=== PATIENT | male | born 2000 | race Caucasian/White ===

== ENCOUNTER 2024-03-06 13:17 | Inpatient (IN) | payer OTHER, SELFPAY ==
[2024-03-04 21:21] VITALS: BP 106/76
[2024-03-04 21:34] VITALS: BP 112/68
[2024-03-04 22:00] VITALS: BP 117/73
--- NOTE | 2024-03-04 22:10 | ED.GENMED ---
History of Present Illness
General
Chief Complaint: Fever
Source: patient
Exam Limitations: none
Time Seen by Provider: 03/04/24 21:32
History of Present Illness
History of Present Illness:
This is a 24 year old male that comes in with c/o fever. States that he has been fighting this all day. States that he had a fever of 104.4 to a low of 101.2. States that he also started with vomiting and has vomited 4 times. Once was self induced.
States that he feels like his vision is swaying. Patient also took Melatonin about 1.5 hours before arriving. States that he has had diarrhea the past couple of days. States that he has a cough. Patient last Chemo which was his first one was on Feb
and it was 'R-CHOP'. Unable to say if he feels SOB. Denies any chills, chest pain, diarrhea, dizziness, urinary burning.
Past History
Past History
ED Past Medical History: Cancer (Lymphoma); Negative Asthma, HTN, Hypercholesterolemia or NIDDM
ED Past Surgical History: Other (Right port)
Social History
Tobacco: Non-smoker
Alcohol: Occasional
Drug: Marijuana
Personal: Single
Living: with family
Review of Systems
Review of Systems
All Other Systems: ROS reviewed and negative except as documented in HPI and ROS
Constitutional: Reports fever; Denies chills
EENT: Reports other (Feels like his vision is swaying)
Respiratory: Reports cough
Cardiac: Denies chest pain
ABD/GI: Reports nausea and vomiting; Denies abdominal pain or diarrhea
: Reports no symptoms; Denies dysuria, frequency or urgency
Musculoskeletal: Reports no symptoms
Skin: Reports no symptoms
Neurological: Reports headache; Denies dizzy
Psychiatric: Reports no symptoms
Phy Exam
General Physical Exam
General Presentation: no apparent distress
General age: appears stated age
General Skin: warm and dry
General Habitus: normal
General Mental: alert
General Hydration: appears well hydrated
ENT Exam
ENT Exam: TM's normal, pharynx normal and neck supple
Eye Exam
Eye Exam: EOMI
Cardiovascular Exam
Cardiovascular Exam: no edema, no murmur, normal peripheral pulses and tachycardia
Pulmonary Exam
Pulmonary Exam: lungs clear, no respiratory distress, no rales, chest non tender, no crackles, no rhonchi, no wheezing and no cough
Gastrointestinal Exam
Gastrointestinal Exam: normal bowel sounds, non tender, soft, no organomegaly, no pulsatile mass and non distended
Musculoskeletal Exam
Musculoskeletal Exam: full ROM and no edema
Skin Exam
Skin Exam: normal color, warm/dry, no rash, no petechia and other (Small open area noted on the medial aspect of his incision line of his port. )
Psychiatric Exam
Psychiatric Exam: normal mood/affect
Course
Orders/Labs/Results
Orders:
Orders
03/04/24 21:45
Acetaminophen 1000MG/100Ml [Ofirmev] 1,000 mg in 100 ml .ROUTE .STK-MED
Ondansetron Injectable [Zofran] 4 mg .ROUTE .STK-MED ONE
03/04/24 21:59
0.9% Sodium Chloride 1000 ml [Nss] 1,000 ml IV BOLUS
CR Chest - 2 Views Urgent
Comment:
Reason For Exam: fever
03/04/24 22:07
CBC/With Diff [Complete Blood Count/With Diff] Urgent
CMP [Comprehensive Metabolic Panel] Urgent
Lactic Acid Urgent
03/04/24 22:12
Acetaminophen 1000MG/100Ml [Ofirmev] 1,000 mg in 100 ml IV ONCE
Acetaminophen IV Indication:: ED Narcotic Naive Pt-ONCE
Ondansetron Injectable [Zofran] 4 mg IV NOW STA
03/04/24 22:27
COVID-19 Antigen Urgent
Source: Nasal Swab
Blood Culture Urgent
MARIPOSA Source: Blood/Venous
Specimen Description:
Influenza A+B Rapid Molecular Urgent
MARIPOSA Source: Nasal Swab
Specimen Description:
03/04/24 23:05
Urinalysis Reflex To Culture Urgent
Date Specimen was Collected: 03/04/24
Time Specimen was Collected: 23:04
Urine Microscopic Reflex Cult Urgent
03/04/24 23:41
Piperacillin/Tazo 3.375 Gram [Zosyn] 3.375 gram in 50 ml IV NOW
Vancomycin 1 Gram/200 ml [Vancocin] 1 gram in 200 ml IV NOW
Abnormal Lab Results
03/04/24 03/04/24
22:07 23:05
WBC 16.8 H 10^3/uL
(4.8-10.8)
MCV 75.8 L fL
(80.0-94.0)
Abs Immat Gran (auto) 0.1 H 10^3/uL
(0-0.05)
Absolute Neuts (auto) 14.8 H 10^3/uL
(1.4-6.5)
Absolute Lymphs (auto) 0.6 L 10^3/uL
(1.2-3.4)
Absolute Monos (auto) 1.3 H 10^3/uL
(0.1-0.6)
Neutrophils % 87.6 H %
(42.2-75.2)
Lymphocytes % 3.4 L %
(20.5-51.1)
Sodium 131 L mmol/L
(135-145)
Chloride 96 L mmol/L
(98-107)
Carbon Dioxide 21 L mmol/L
(22-30)
Glucose 126 H mg/dl
(70-99)
Lactic Acid 0.6 L mmol/L
(0.7-2.0)
ALT 60 H U/L
(0-50)
Total Protein 6.2 L g/dl
(6.3-8.2)
Urine Ketones 2+ A
(Negative)
Urine Bilirubin 1+ A
(Negative)
Urine Albumin (Reflex) 1+ A
(Neg - Trace)
03/04/24 22:07
03/04/24 22:07
Leukocytosis, Absolute neuts elevated. Sodium slightly low, Chloride slightly low, Hyperglycemia, ALT elevated. Total protein slightly low 6.2 Urine negative for infection. COVID negative, Influenza negative.
Vital Signs
Initial and Last Documented VS:
Initial Vital Signs
Temp Pulse Resp BP Pulse Ox
102.2 F H 144 28 106/76 94
03/04/24 21:21 03/04/24 21:21 03/04/24 21:21 03/04/24 21:21 03/04/24 21:21
Last Documented Vital Signs
Temp Pulse Resp BP Pulse Ox
99.9 F 109 16 106/69 95
03/04/24 23:10 03/04/24 23:08 03/04/24 23:08 03/04/24 23:08 03/04/24 23:15
MDM/Problems Addressed
Differential Diagnosis Includes:
Neutropenic fever, COVID, Influenza,
MDM/Problems Addressed:
This is a 24 year old male that comes in with c/o fever. States that this started today and he has been as high as 104.4 and low as 101.2.
Will get labs, chest , urine, Give IV fluid and medicate for nausea and fever.
back into see patient and family. Explained that his chest x-ray is normal. He is negative or COVID and influenza,. Urine is negative for infection. Will admit patient and start IV antibiotics. Blood culture are pending. Hospitalist notified.
Chronic conditions affecting care: Cancer
Acute Exacerbation and/or Progression of Chronic Illness: Cancer
*Pulse Oximetry
Patient hypoxic: no
*EKG
Interpreted by ED Provider?: NA
Rate: EKG- N/A
*Bailiff Interpretation
Rate: tachycardiac
Heart Rate: 120
Rhythm: sinus tachycardia
*Critical Care Note
Total Time (30-74mins, 75-104mins- exclusive of procedures): Not Applicable
ED Attending Note
-
Portions of this chart may have been created with voice recognition software.� Occasional wrong word or��sound alike� substitutions may have occurred due to the inherent limitations of voice recognition software.
Discharge Plan
Departure
Patient Disposition: Admit
Date of Disposition: 03/04/24
Time of Disposition: 23:54
Admit to: Med/Surg
Presentation/result/management discussed w/ accepting MD/DO: Hospitalist
Patient with high blood pressure during this ER visit?: No
Condition: Good
Covid-19: Negative COVID-19
Discharge Problem:
Fever
Referrals:
Justin Moon MD [Family Provider] -
Interventions
Interventions:
*Risk Screen - Suicide Last Done: 03/04/24 21:21
*General Assessment Last Done: 03/04/24 21:21
*Neglect/Abuse Screening Last Done: 03/04/24 21:21
ED- Fall Risk Assessment Last Done: 03/04/24 21:21
*ED COVID-19 Vaccine History Last Done: 03/04/24 21:21
Discharge Date and Time
Print Language: DANISH
[2024-03-04 22:16] LABS: % Basophils 0.6 % (0-2); % Immature Granulocytes 0.5 % (0-0.5); % Lymphocytes 3.4 % (20.5-51.1); % Monocytes 7.9 % (1.7-9.3); % Neutrophils 87.6 % (42.2-75.2); Absolute Basophils 0.1 10^3/uL (0-0.2); Absolute Immature Granulocytes 0.1 10^3/uL (0-0.05); Absolute Lymphocytes 0.6 10^3/uL (1.2-3.4); Absolute Monocytes 1.3 10^3/uL (0.1-0.6); Absolute Neutrophils 14.8 10^3/uL (1.4-6.5); Hemoglobin 14.9 g/dL (13.0-18.0); Mean Corp Hgb Conc. 36.3 g/dL (33.0-37.0); Mean Corpuscular Hgb 27.5 pg (27.0-31.0); Mean Corpuscular Volume 75.8 fL (80.0-94.0); Nucleated Red Blood Cells % 0 % (-); Platelet Count 146 10^3/uL (130-400); Red Blood Cell Count 5.41 10^6/uL (4.70-6.10); Red Cell Dist. Width 13.2 % (11.5-14.5); White Blood Cell Count 16.8 10^3/uL (4.8-10.8)
[2024-03-04] MEDS: NSS 1000 IV (22:17)
[2024-03-04] MEDS: ZOFRAN 4 MG IV (22:18)
[2024-03-04] MEDS: OFIRMEV 100 IV (22:18)
[2024-03-04 22:28] LABS: Lactic Acid 0.6 mmol/L (0.7-2.0)
[2024-03-04 22:30] VITALS: BP 121/66
[2024-03-04 22:35] LABS: ALT (SGPT) 60 U/L (0-50); AST (SGOT) 46 U/L (17-59); Albumin 3.9 g/dl (3.5-5.0); Alkaline Phosphatase 125 U/L (38-126); Blood Urea Nitrogen 15 mg/dl (9-20); Calcium 8.9 mg/dl (8.4-10.2); Carbon Dioxide 21 mmol/L (22-30); Chloride 96 mmol/L (98-107); Glucose 126 mg/dl (70-99); Potassium 3.9 mmol/L (3.5-5.1); Sodium 131 mmol/L (135-145); Total Bilirubin 1.2 mg/dl (0.2-1.3); Total Protein 6.2 g/dl (6.3-8.2); eGFR > 60.00
[2024-03-04 22:54] LABS: COVID-19 Antigen Negative (Negative)
[2024-03-04 23:08] VITALS: BP 106/69
[2024-03-04 23:16] LABS: Urine Albumin 1+ (Neg - Trace); Urine Bilirubin 1+ (Negative); Urine Character Clear (Clear); Urine Color Yellow; Urine Glucose Negative (Negative); Urine Ketone 2+ (Negative); Urine Leukocyte Negative (Negative); Urine Nitrite Negative (Negative); Urine Occult Blood Negative (Negative); Urine Specific Gravity 1.015 (<1.030); Urine Urobilinogen Negative (Neg - 1+)
[2024-03-04 23:37] LABS: Urine Red Blood Cell None Seen /HPF (0-2); Urine White Cell None Seen /HPF (0-5)
[2024-03-04 23:49] VITALS: BP 112/70
[2024-03-05] VITALS (9 sets, daily range): BP systolic 88–118; BP diastolic 50–76; BMI 33.4
--- NOTE | 2024-03-05 00:31 | HPS.HSE ---
Family Physician
-
Family Physician: Justin Moon
Chief Complaint
-
Fever
History of Present Illness
This is a 23-year-old with history of large B-cell lymphoma presenting to the emergency department with 1 day of fevers.
Patient had a definitive diagnosis in February 2024. Started chemotherapy (�CHOP) on February 13. He had left groin lymph node excisional biopsy and was found to have left lower extremity DVT related to the adenopathy at that time. Patient
was started on Eliquis. His next dose of chemotherapy will be in next week Wednesday. Patient tolerated the first cycle of R-CHOP and received neutrophil stimulating agent 24 hours later. He reports generally feeling well up until today when he
said started having fevers at home. He had a Tmax of up to 104 at home. Prior to the fevers he had episodes of nonbloody and nonbilious vomiting as well as 3-4 loose bowel movements that were nonbloody. His last bowel movement was semiformed.
Patient denied any new rash. He denies any joint swelling or erythema. He reported injury to his right shoulder as he was trying to lift heavy object at work. He felt he may have caused and mechanical damage to the port insertion site. There was
no leakage from the site. This occurred about 4 days ago. Denies any urinary symptoms. He has a history of seasonal allergies and reports some sinus congestion and postnasal drip and was coughing earlier today but after taking allergy medicines
his cough has declined significantly. He denies feeling short of breath.
In the emergency department the patient had a fever of 101, blood pressure was stable he was tachycardic to 109 with a normal respiratory rate and oxygen saturation on room air. White count was 16,000 and he had a hemoglobin of 15 and normal
platelet count of 146. Chemistries were unremarkable for the except for a sodium of 131. His chest x-ray was clear. COVID was negative, influenza was negative. UA was unremarkable.
Medical History
Past Medical History
Past Medical History: Reports Cancer (Large B-cell lymphoma) and Other (DVT)
Past Surgical History: Reports Other (Left groin lymph node dissection and excisional biopsy)
Social History
Tobacco: Non-smoker
Alcohol: None
Drug: Marijuana
Personal: Single
Living: With Family
Employment: Employed
Family History
Family History: Not pertinent
Allergies / Home Medications
Allergies reflects when Allergies were last updated in [employer].
Home Medications with original date entered in [employer]
Allergy/Medication List:
Allergies
Allergy/AdvReac Type Severity Reaction Status Date / Time
No Known Allergies Allergy Verified 03/04/24 22:11
Apixaban 5mg tablet. 5mg PO BID
Acyclovir 400 mg tablet. 400mg PO BID
Review of Systems
-
History Source: Patient
Constitutional: Reports Fever
EENT: Reports Runny Nose
Respiratory: Reports Cough
Cardiac: Reports No Symptoms
Abdomen/GI: Reports Nausea, Vomiting and Diarrhea
: Reports No Symptoms
Musculoskeletal: Reports No Symptoms
Skin: Reports No Symptoms
Endocrine: Reports No Symptoms
Hematologic/Lymphatic: Reports No Symptoms
Psych: Reports No Symptoms
Physical Exam
Vital Signs
Vital Signs
Temp Pulse Resp BP Pulse Ox
99.9 F 109 16 106/69 95
03/04/24 23:10 03/04/24 23:08 03/04/24 23:08 03/04/24 23:08 03/04/24 23:15
Physical Exam
General: Well Developed, Well Nourished, No Apparent Distress and Comfortable
HEENT: NormoCephalic, Anicteric, Moist mucous membranes, Atraumatic and PERRLA
Respiratory: Clear
Cardiac: S1/S2 and Regular Rhythm
Breast: Deferred by me
GI: Soft, Non Tender, Non Distended and Normal Bowel Sounds
Rectal: Deferred by Provider
Genito-urinary: No costovertebral tender
Musculoskeletal: No Clubbing, No Cyanosis and No Edema
Skin: Warm
Neuro: AO x 3
Hematologic/Lymphatic: Other (left inguinal fluid collection w/o induration or tenderness to palpation)
Laboratory Results
-
03/04/24 22:07
03/04/24 22:07
Laboratory Results
Lactic Acid 0.6 mmol/L (0.7-2.0) L 03/04/24 22:07
Total Bilirubin 1.2 mg/dl (0.2-1.3) 03/04/24 22:07
AST 46 U/L (17-59) 03/04/24 22:07
ALT 60 U/L (0-50) H 03/04/24 22:07
Alkaline Phosphatase 125 U/L (38-126) 03/04/24 22:07
Data Reviewed
-
Diagnostic Radiology: Image Personally Visualized and interpreted
Lab Data: Labs Reviewed by me
Old Records: Reviewed
Impression/Plan
-
IMPRESSION:
23 y.o with L B cell lymphoma s/p R-CHOP C1 D1 on 02/15 coming in with fever without obvious source. Evaluation so far reveals some trauma to area of [id number] but no erythema, edema, leakage or tenderness to the site. There was also symptoms of
gastroenteritis. He is not neutropenic nor leukopenic.
PLAN:
1. Fever - So far, etiology likely blood stream vs GI vs viral illness. His is hemodynamically stable and non-toxic appearing.
- admit to med/surg observation
- blood and urine cultures sent
- viral panel negative
- stool studies if diarrhea
- continue with cefepime for now 2g q 12
- ID consultation
2. B-Cell Lymphoma - On R-CHOP last chemo 02/15. Follows with [facility].
- supportive care
- continue acyclovir
- consider oncology consultation
DVT - PPX - On apixaban treatment for DVT
Code - Status - Full Code
[2024-03-05] MEDS: ZOSYN 50 IV (01:03)
[2024-03-05] MEDS: ELIQUIS 5 MG PO ×3 (01:07→22:01)
[2024-03-05] MEDS: VANCOCIN 200 IV ×2 (01:50→13:47)
[2024-03-05] MEDS: TYLENOL 650 MG PO ×4 (04:27→22:59)
[2024-03-05] MEDS: MAXIPIME 2000 MG IV ×2 (06:12→18:25)
[2024-03-05] MEDS: STERILE WATER FOR INJECTION 10 ML IV ×2 (06:12→18:25)
[2024-03-05 06:50] LABS: Blood Urea Nitrogen 15 mg/dl (9-20); Calcium 8.7 mg/dl (8.4-10.2); Carbon Dioxide 24 mmol/L (22-30); Estimated Creatinine Clearance > 125 ml/min; Glucose 109 mg/dl (70-99); Potassium 4.2 mmol/L (3.5-5.1); eGFR > 60.00
[2024-03-05 06:54] LABS: Hematocrit 39.2 % (39.0-52.0); Hemoglobin 13.8 g/dL (13.0-18.0); Mean Corp Hgb Conc. 35.2 g/dL (33.0-37.0); Mean Corpuscular Volume 76.6 fL (80.0-94.0); Mean Platelet Volume 10.2 fL (7.4-10.4); Platelet Count 146 10^3/uL (130-400); Red Blood Cell Count 5.12 10^6/uL (4.70-6.10); Red Cell Dist. Width 13.2 % (11.5-14.5); White Blood Cell Count 14.6 10^3/uL (4.8-10.8)
[2024-03-05 06:56] LABS: Chloride 99 mmol/L (98-107); Sodium 136 mmol/L (135-145)
[2024-03-05] MEDS: ZOVIRAX 400 MG PO ×2 (08:02→22:01)
[2024-03-05] MEDS: ZYRTEC 10 MG PO (08:02)
--- NOTE | 2024-03-05 08:08 | W.PN.HOSP.TC ---
Today's Communication/Plan
-
Continue broad-spectrum IV antibiotics
Await ID consult
Trend fever and white count
Assessment / Plan
Assessment / Plan
1. SIRS with fever/leukocytosis - So far, etiology likely blood stream vs GI vs viral illness. His is hemodynamically stable and non-toxic appearing.
- covid/flu negative, c. diff neg, stool culture pending
- 1/2 blood cultures growing GPC, f/u ID, could be contaminant
- continue with vanc/cefepime
- await ID consultation, trend fever/WBC
2. B-Cell Lymphoma - On R-CHOP last chemo 02/15. Follows with [facility].
- supportive care
- continue acyclovir
- consult oncology
DVT - PPX - On apixaban treatment for DVT
Code - Status - Full Code
Anticipated Discharge: > 48 hours
Subjective/Interval History
-
Date of Service: March 05, 2024
Patient continues to report fever and chills. He has chest pain with inspiration. No sore throat, nasal congestion. No vomiting, no abdominal pain. No dysuria.
Objective Data
-
Labs:
Laboratory Results
03/04/24 03/05/24
22:07 06:19
WBC 16.8 H 14.6 H
Hgb 14.9 13.8
Hct 41.0 39.2
Plt Count 146 146
Sodium 131 L 136
Potassium 3.9 4.2
Chloride 96 L 99
Carbon Dioxide 21 L 24
BUN 15 15
Creatinine 0.9 0.8
Glucose 126 H 109 H
Calcium 8.9 8.7
Total Bilirubin 1.2
AST 46
ALT 60 H
Alkaline Phosphatase 125
Vital Signs:
Vital Signs
Temp Pulse Resp BP Pulse Ox
98.3 F 91 18 106/74 98
03/05/24 02:47 03/05/24 02:47 03/05/24 02:47 03/05/24 02:47 03/05/24 02:47
I&O
03/04/24 03/05/24 03/06/24
06:59 06:59 06:59
Intake Total 480 / 480
Balance 480 / 480
[2024-03-05] MEDS: ZOFRAN 4 MG IV ×2 (09:16→15:25)
[2024-03-05] MEDS: PROTONIX 40 MG PO (10:17)
--- NOTE | 2024-03-05 11:27 | CM ---
Reviewed the chart notes and spoke with the patient and his parents at the bedside. The patient is admitted under observational status. The Observational Letter was provided and explained. The patient nor parents had any questions with regards to
the letter.
The patient resides with his parents in a two story home with three steps to enter. The patient reports no DME/VN/SNF in the past. The patient confirmed his pharmacy of choice is the [facility]. continues to be available to
patient/family and is monitoring medical plan for needs at discharge.
Plan: Discharge to home when medically stable. No anticipated needs identified.
--- NOTE | 2024-03-05 14:30 | PHA.VAN.IN ---
Assessment
- Assessment
Renal Function: Unknown baseline (Scr 0.8 today which is likely baseline)
Maximum Temperature: 103.0 on 03/05/24 at 13:10
Minimum Temperature: 98.3 on 03/05/24 at 02:47
Concomitant Antimicrobials: Cefepime
AUC Dosing Plan
- Dosing Variables
Dosing Weight (kg): 99.75
Dosing CrCl (ml/min): 100
Vd coefficient (L/kg): 0.6
- Empiric Dosing
Initial / Loading Dose: Split load 1000mg today 01:50 1000mg today at 13:47
Maintenance Regimen: Vancomycin 1250mg IV Q12hrs start today at 22:00 then 06:00 tomorrow
Estimated AUC (mcg*h/mL): 509
Estimated Peak (mcg*h/mL): 32
Estimated Trough (mcg/ml): 13
Estimated Half Life (H): 8
- Monitoring
No levels ordered at this time: Will order levels according to vancomycin dosing protocol.
Pharmacokinetics Vancomycin I
- -
Patient Age: 24
Patient Sex: Male
Vancomycin Day #: 1
Indication: Bacteremia
Requesting Provider: Dr Eri Fitch
Pertinent Antimicrobial Allergies:
No antibiotic allergies
Height / Weight:
Height 5 ft 8 in
Actual Weight 99.745 kg
IBW in k.4
Adjusted BW in k.9
Pertinent Past Medical History: Large B-cell lymphoma first cycle 02/16/24 R-CHOP
- Vital Signs / Lab Results
Temp Pulse Resp BP Pulse Ox
103.0 F H 121 16 101/50 95
03/05/24 13:10 03/05/24 13:10 03/05/24 13:10 03/05/24 13:10 03/05/24 13:10
Lab Results - Hematology
03/04/24 03/05/24
22:07 06:19
WBC 16.8 H 14.6 H
Lab Results - Chemistry
03/04/24 03/05/24
22:07 06:19
BUN 15 15
Creatinine 0.9 0.8
Estimated Creat Clear > 125
Albumin 3.9
03/04/24
22:07
Lactic Acid 0.6 L
Lab Results - Urine
03/04/24
23:05
Urine Nitrite (Reflex) Negative
Leukocyte Esterase Rfl Negative
Urine WBC (Reflex) None seen
Microbiology Results
03/04/24 22:27 Blood Culture - Preliminary
Blood/Venous Positive culture in progress
Gram Stain - Preliminary
03/05/24 10:28 C. difficile GDH Antigen & Toxins - Final
Feces/Stool Negative for toxigenic C.difficile
03/04/24 22:27 Influenza Types A & B (PATI) - Final
Nasal Swab Negative for Influenza A & B, NAAT
Negative results must be combined with clinical observations
and patient history.
Nucleic Acid Amplification test (NAAT)performed on the
[employer] platform.
--- NOTE | 2024-03-05 14:46 | CON.ID ---
Consultation
-
Date/Time Consultation Requested: 03/05/2024 0238
Date/Time Consultation Performed: 03/05/2024 1400
Requesting Provider: Grabiel Baugh
Performing Provider: Dr. Amador
Reason for Consultation: Fever; bacteremia
Chief Complaint / Past History
History of Present Illness
Jamison Woodson is a 24-year-old male being evaluated regarding fever. History is obtained from chart review, along with patient interview. Additional history was obtained from the patient's parents who are at the bedside.
Patient recently was diagnosed with large B-cell lymphoma, and is under treatment at [facility]. He notes that he had a port placed on 02/13, and received R-CHOP on 02/15. Additionally, he received G-CSF following chemotherapy. He
reports he was in his usual state of health until 5 days ago when he reports a 'workplace accident' when he lifted a box that was greater than the 5 pound limit that he was directed to when his port was placed. Following picking up the box he
reports he felt discomfort in the Port-A-Cath area and describes feeling in his right shoulder area like 'he dislocated his shoulder'. The next day he reported ongoing right shoulder area pain. He denied any arm swelling, but noted that he could
not sleep on his right side. The next day he noted ongoing shoulder discomfort. Two days ago he developed nausea and vomiting and yesterday he developed a fever to 103.8 degrees, at that point in time came to the emergency room for further
evaluation. ER notes that the patient has vomited at least 4 times, with 1 of those being 'self-induced'. Also noted is diarrhea over the past several days.
The patient denies any sick contacts. He denies any issues with his port up to this point in time. At presentation he was started on empiric antibiotics (vancomycin and cefepime). He has had ongoing fevers since admission.
Past History
Additional Past Medical History:
Large B-cell lymphoma
Hx DVT
Additional Past Surgical History:
Left groin lymph node dissection/excisional biopsy
Port-A-Cath placement (02/14/2024)
Allergy History:
No Known Allergies Allergy (Verified 03/04/24 22:11)
Medications Reviewed: Yes
Current Antibiotics:
Vancomycin
Cefepime
Social History
Tobacco: Non-Smoker
Alcohol: None
Drug: Marijuana
Personal: Single
Living: With Family
Employment: Employed
Family History
Family History: Not Pertinent
Review of Systems
Vital Signs
Temp Pulse Resp BP Pulse Ox
103.0 F H 121 16 101/50 95
03/05/24 13:10 03/05/24 13:10 03/05/24 13:10 03/05/24 13:10 03/05/24 13:10
Physical Exam
Physical Exam
Constitutional: No Acute Distress, Comfortable and Non-toxic
Eyes: Pupils Equal, Pupils Round, No Conjunctival Hemorrhage and Sclera Anicteric
Oral: No Thrush and No Ulcers
Cardiovascular: Regular Rate and S1/S2; Negative S3/S4 or Murmur
Pulmonary: Clear; Negative Wheezes, Rales or Rhonchi
Gastrointestinal: Soft, Non Tender, Non Distended, Normal Bowel Sounds, No Rebound and No Guarding
Genito-Urinary: Negative Galvan or CVA Tenderness
Extremities: Negative Edema, Cyanosis or Erythema
Musculoskeletal: Other (No appreciable right shoulder joint discomfort with AROM or PROM)
Skin: Other (Mild facial flushing noted)
Wound: None
Neurological: Awake, Alert, Oriented and Normal Muscle Strength
Psychological: Calm
Lines: Port (Access; no tenderness at port site, although tract mildly tender with palpation.)
.
Lab / Diagnostic Study Results
03/05/24 06:19
03/05/24 06:19
Abs Immat Gran (auto) 0.1 10^3/uL (0-0.05) H 03/04/24 22:07
Absolute Neuts (auto) 14.8 10^3/uL (1.4-6.5) H 03/04/24 22:07
Absolute Lymphs (auto) 0.6 10^3/uL (1.2-3.4) L 03/04/24 22:07
Absolute Monos (auto) 1.3 10^3/uL (0.1-0.6) H 03/04/24 22:07
Absolute Basos (auto) 0.1 10^3/uL (0-0.2) 03/04/24 22:07
Immature Gran % 0.5 % (0-0.5) 03/04/24 22:07
Neutrophils % 87.6 % (42.2-75.2) H 03/04/24 22:07
Lymphocytes % 3.4 % (20.5-51.1) L 03/04/24 22:07
Monocytes % 7.9 % (1.7-9.3) 03/04/24 22:07
Eosinophils % 0.0 % (0-6) 03/04/24 22:07
Basophils % 0.6 % (0-2) 03/04/24 22:07
Lactic Acid 0.6 mmol/L (0.7-2.0) L 03/04/24 22:07
Microbiology Results
Micro:
03/04/24 22:27 Blood Culture - Preliminary
Blood/Venous Positive culture in progress
Gram Stain - Preliminary
03/05/24 10:28 C. difficile GDH Antigen & Toxins - Final
Feces/Stool Negative for toxigenic C.difficile
03/05/24 10:27 Salmonella/Shigella Culture - Pending
Feces/Stool Campylobacter Culture - Pending
Shiga Toxin Test - Pending
03/05/24 00:43 Blood Culture - Pending
Blood/Venous
03/04/24 22:27 Influenza Types A & B (PATI) - Final
Nasal Swab Negative for Influenza A & B, NAAT
Negative results must be combined with clinical observations
and patient history.
Nucleic Acid Amplification test (NAAT)performed on the
[employer] platform.
Imaging:
03/04/2024 CXR (2 view): No parenchymal opacification or vascular congestion. Right chest port is seen with tip in the distal SVC. Cardiomediastinal silhouettes are within the limits of normal.
Assessment / Plan
Fever
Leukocytosis
Positive blood cultures (GPC's�clusters) in 1 of 4 bottles
Large B-cell lymphoma; recent initiation of R-CHOP (02/16/2024)
Recommendations:
Continue with empiric vancomycin and cefepime for the present.
Await further blood culture data to guide antimicrobial selection and potential de-escalation.
If cultures reveal anything other than coag negative staph, will repeat blood cultures.
Trend white count and temperature curve.
Care Review
Plan reviewed with: Physician (Hospitalist)
[2024-03-05] MEDS: TORADOL 15 MG IV (15:48)
[2024-03-05] MEDS: NSS 1000 IV ×2 (15:49→22:01)
[2024-03-05] MEDS: MELATONIN 5 MG PO (22:01)
[2024-03-05] MEDS: VANCOCIN 275 MG IV (22:01)
[2024-03-05] MEDS: NSS 500 IV (23:25)
[2024-03-06] VITALS (8 sets, daily range): BP systolic 88–130; BP diastolic 52–81
[2024-03-06] MEDS: STERILE WATER FOR INJECTION 10 ML IV (06:22)
[2024-03-06] MEDS: MAXIPIME 2000 MG IV (06:22)
[2024-03-06] MEDS: VANCOCIN 275 MG IV (06:28)
[2024-03-06] MEDS: ZOFRAN 4 MG IV (06:33)
[2024-03-06] MEDS: MAALOX 30 ML PO (06:34)
--- NOTE | 2024-03-06 06:53 | CON.ONC ---
Impression
Impression
Diffuse large B-cell lymphoma, status post cycle 1 of R-CHOP on 02/16/2024
Port infection
Bacteremia
Plan
Plan
Agree with plan for port removal. Will reach out to his physician at [place].
Not sure how long his primary oncologist will want to hold treatment, which is being given with curative intent.
Antibiotics as per infectious disease.
Please note: Patient has a fluctuant left groin mass where he underwent excisional biopsy. The fluctuance is attributed to seroma and it should not be incised or drained.
The surrounding skin does appear red but any infection in this area would presumably be covered by the same biotic antibiotics he would get for the port site infection.
Thank you for consultation we will follow along with you.
Patient History
History of Present Illness
23 yo man with hx of left groin adenopathy dating back to 2015 when he had an extensive skin infection. Did not undergo biopsy at the time. In recent months, he noted swelling in left neck and abdomen along with 15 to 20 pound weight loss. He
underwent a CT A/P showing splenomegaly and retroperitoneal and left inguinal adenopathy. Also has L supraclav adenopathy. Biopsy 01/27/24 of inguinal node showed T-cell/histiocyte rich large B-cell lymphoma which appeared to have possibly
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 Recent history also signficant for LLE DVT attributed to L groin adenopathy, continuing on Eliquis. He follows with Dr. Janet Tai at [facility] started R-CHOP on 02/13 with Neulasta
02/14. Initially did well. Fevers began 03/04 with Tmax 104, accompanied by nausea/vomiting, loose bowel movements. Hx otherwise remarkable for lifting something heavy at work which he felt may have damaged the port site. In ED, febrile to 101.
His chest x-ray was clear. COVID was negative, influenza was negative. UA was unremarkable. One of two blood cultures grew GPC, possible contaminant, now on Vanco/Cefepime. Continues on acyclovir prophylaxis. Stool cultures pending. Last fever was
last night at 11 pm. At that time, SBP 88 and has remained <100. Vitals stable otherwise with room air sat 97%. 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 Patient has been seen by infectious disease, with suspicion
that the port is the source of infection.
Past-Medical/Surgical History
PMHx
Large B-cell lymphoma
LLE DVT
PSHx
Excisional biopsy L inguinal lymph node
Port placement
Social History
Tobacco: Non-Smoker
Alcohol: None
Drug: Marijuana
Personal: Single
Living: With Family
Employment: Employed
Family History
Family History: Not Pertinent
Patient Medication
�Medication �Instructions �Recorded �Confirmed �Last Taken �Type
acetaminophen 500 mg tablet 1,000 mg PO Q6HPRN PRN mild pain 03/05/24 03/05/24 Unknown History
acyclovir 400 mg tablet 400 mg PO BID prophylaxis 03/05/24 03/05/24 Unknown History
apixaban 5 mg tablet (Eliquis) 5 mg PO BID Blood Clot 03/05/24 03/05/24 Unknown History
Prevention/Tx
cetirizine 10 mg tablet (Zyrtec) 10 mg PO DAILYPRN PRN running nose 03/05/24 03/05/24 Unknown History
lidocaine-prilocaine 2.5 %-2.5 % 1 applic topical DAILYPRN PRN port 03/05/24 03/05/24 Unknown History
topical cream access
ondansetron HCl 8 mg tablet 8 mg PO Q8HPRN PRN nausea 03/05/24 03/05/24 Unknown History
Active Medications
Generic Name Dose Route Start Last Admin
Trade Name Freq PRN Reason Stop Dose Admin
Acetaminophen 650 mg 03/05/24 02:38 03/05/24 22:59
Acetaminophen 325 Mg Tablet PO 04/02/24 02:37 650 mg
Q4HPRN PRN Administration
mild pain/DICKSON/temp> 100.4F
Acyclovir Sodium 400 mg 03/05/24 08:00 03/05/24 22:01
Acyclovir Sodium 200 Mg Capsule PO 03/15/24 07:59 400 mg
BID LEONIDAS Administration
Al Hydrox/Mg Hydrox/Simethicone 30 ml 03/05/24 09:54 03/06/24 06:34
Mag/Al/Simethicone Suspension 30 Ml Cup PO 04/02/24 09:53 30 ml
QIDPRN PRN Administration
heartburn/reflux
Apixaban 5 mg 03/05/24 08:00 03/05/24 22:01
Apixaban (Eliquis) 5 Mg Tablet PO 04/02/24 07:59 5 mg
BID LEONIDAS Administration
Bisacodyl 10 mg 03/05/24 02:38
Bisacodyl 10 Mg Rectal Suppository RECTAL 04/02/24 02:37
[id number] PRN
constipation
Cefepime HCl 2,000 mg 03/05/24 06:00 03/06/24 06:22
Cefepime Hcl 2,000 Mg/12.5 Ml Vial IV 2,000 mg
Q12H LEONIDAS Administration
Cetirizine HCl 10 mg 03/05/24 08:00 03/05/24 08:02
Cetirizine Hcl 10 Mg Tablet PO 04/02/24 07:59 10 mg
DAILY LEONIDAS Administration
Heparin Sodium (Porcine) 500 unit 03/05/24 15:30
Heparin Flush Pf (100 Unit/Ml) 5 Ml Syringe IV 04/02/24 15:29
PER PROTOCOL LEONIDAS
Vancomycin HCl 1,250 mg/ 275 mls @ 183.33 mls/hr 03/05/24 22:00 03/06/24 06:28
Sodium Chloride IV 275 mls
Q12@0600,1800 LEONIDAS Administration
Protocol
Sodium Chloride 1,000 mls @ 125 mls/hr 03/05/24 15:45 03/05/24 22:01
Nss IV 1,000 mls
.Q8H LEONIDAS Administration
Melatonin 5 mg 03/05/24 22:00 03/05/24 22:01
Melatonin 5 Mg Tablet PO 04/02/24 21:59 5 mg
HS LEONIDAS Administration
Ondansetron HCl 4 mg 03/05/24 02:38 03/06/24 06:33
Ondansetron 4 Mg/2 Ml Vial IV 04/02/24 02:37 4 mg
Q6HPRN PRN Administration
nausea and vomiting
Pantoprazole Sodium 40 mg 03/05/24 10:00 03/05/24 10:17
Pantoprazole 40 Mg Delayed Release Tablet PO 04/02/24 09:59 40 mg
DAILY LEONIDAS Administration
Polyethylene Glycol 17 grams 03/05/24 02:38
Polyethylene Glycol Powder 17 Grams Packet PO 04/02/24 02:37
DAILYPRN PRN
constipation
Senna/Docusate Sodium 1 tablet 03/05/24 02:38
Docusate W/Senna (Melanie-Colace) Tablet PO 04/02/24 02:37
BIDPRN PRN
constipation
Sodium Chloride 0 flush 03/05/24 01:00
Sodium Chloride 0.9% (Flush) Syringe IV 04/02/24 00:59
PER PROTOCOL LEONIDAS
Sterile Water 10 ml 03/05/24 06:00 03/06/24 06:22
Sterile Water For Injection 10 Ml Vial IV 04/02/24 05:59 10 ml
Q12H LEONIDAS Administration
Review of Systems
-
History Source: Patient, Family and Records
All Other Systems: Reviewed and Negative
Constitutional: Reports No Symptoms
Respiratory: Reports Other (Patient had slight wheezing, cleared with inhaler.)
Cardiac: Reports No Symptoms and Chest Pain (Pain in left upper chest wall near port site.)
GI: Reports No Symptoms
Breast: Reports No Symptoms
: Reports No Symptoms
Musculoskeletal: Reports No Symptoms
Skin: Reports Sores (Open wound just medial to port site.)
Neuro: Reports No Symptoms
Endocrine: Reports No Symptoms
Hematologic/Lymphatic: Reports Swollen Glands (Reports marked improvement in left supraclavicular adenopathy since starting chemotherapy)
Allergy / Immunology: Reports No Symptoms
Psych: Reports No Symptoms
Physical Exam
-
General: Well Developed and Well Nourished
HEENT: Moist Mucous Membranes; Negative Jaundice
Cardiology: Normal Sinus Rhythm, S1 and S2
Pulmonary: Clear
GI: Soft and No Organomegaly
Musculoskeletal: No Clubbing, No Cyanosis and No Edema
Extremities: Pulses Present
Neurology: Non Focal
Skin: Warm and Dry
Hematologic / Lymphatic: Lymphadenopathy
Psych: Calm and Intact Judgement/Insight
Labs
Lab Results
WBC 14.6 10^3/uL (4.8-10.8) H 03/05/24 06:19
RBC 5.12 10^6/uL (4.70-6.10) 03/05/24 06:19
Hgb 13.8 g/dL (13.0-18.0) 03/05/24 06:19
Hct 39.2 % (39.0-52.0) 03/05/24 06:19
MCV 76.6 fL (80.0-94.0) L 03/05/24 06:19
MCH 27.0 pg (27.0-31.0) 03/05/24 06:19
MCHC 35.2 g/dL (33.0-37.0) 03/05/24 06:19
RDW 13.2 % (11.5-14.5) 03/05/24 06:19
Plt Count 146 10^3/uL (130-400) 03/05/24 06:19
MPV 10.2 fL (7.4-10.4) 03/05/24 06:19
Abs Immat Gran (auto) 0.1 10^3/uL (0-0.05) H 03/04/24 22:07
Absolute Neuts (auto) 14.8 10^3/uL (1.4-6.5) H 03/04/24 22:07
Absolute Lymphs (auto) 0.6 10^3/uL (1.2-3.4) L 03/04/24 22:07
Absolute Monos (auto) 1.3 10^3/uL (0.1-0.6) H 03/04/24 22:07
Absolute Eos (auto) 0.0 10^3/uL (0-0.7) 03/04/24 22:07
Absolute Basos (auto) 0.1 10^3/uL (0-0.2) 03/04/24 22:07
Immature Gran % 0.5 % (0-0.5) 03/04/24 22:07
Neutrophils % 87.6 % (42.2-75.2) H 03/04/24 22:07
Lymphocytes % 3.4 % (20.5-51.1) L 03/04/24 22:07
Monocytes % 7.9 % (1.7-9.3) 03/04/24 22:07
Eosinophils % 0.0 % (0-6) 03/04/24 22:07
Basophils % 0.6 % (0-2) 03/04/24 22:07
Creatinine 0.8 mg/dL (0.7-1.3) 03/05/24 06:19
Vital Signs
Vital Signs
Temp Pulse Resp BP Pulse Ox
99.8 F 83 18 93/55 97
03/06/24 06:44 03/06/24 03:38 03/06/24 03:38 03/06/24 03:38 03/06/24 03:38
--- NOTE | 2024-03-06 07:38 | W.PN.HOSP.TC ---
Today's Communication/Plan
-
IR consult for port removal
Follow fever curve
Continue empiric antibiotics
Assessment / Plan
Assessment / Plan
Impression: 24-year-old male with PMH of large B-cell lymphoma on chemo and left lower extremity DVT on Eliquis, who presented to ED on 03/04/2024 with 1 day of fever Tmax 104 at home and leukocytosis.
Assessment/plan
# Sepsis
-Bacteremia with blood cultures growing Staph aureus, susceptibility pending.
-Given tenderness around port, this might be the point of entry.
-IR consult for port removal per ID.
-WBC count trending down, Tmax 104.4 24H.
-CXR 03/04/2024 with no acute cardiopulmonary process.
-Stool cultures pending.
-Continue empiric vancomycin and cefepime per ID.
-ID following.
-Follow fever curve.
#Wheezing
-Occasional SOB on exertion.
-Pulmicort twice daily.
#Large B-Cell Lymphoma
-Follows with Aron Barajas, Doctor Zaire, initiated R-CHOP on 02/16/2024.
-Continue acyclovir.
-Oncology consult.
DVT PPx
-Apixaban
CODE STATUS-full code
Anticipated Discharge: > 48 hours
Subjective/Interval History
-
Date of Service: March 06, 2024
Patient seen and examined with father by bedside. Reports feeling hot but denies chills, headaches, palpitations, chest pain, shortness of breath, abdominal pain, urinary symptoms. He also reported mild pain around the port area. His Tmax is
104.4 over the past 24 hours, currently 101.6 which responds to Tylenol. Other vitals are stable.
Objective Data
-
Vital Signs:
Vital Signs
Temp Pulse Resp BP Pulse Ox
99.8 F 83 18 93/55 97
03/06/24 06:44 03/06/24 03:38 03/06/24 03:38 03/06/24 03:38 03/06/24 03:38
I&O
03/05/24 03/06/24 03/07/24
06:59 06:59 06:59
Intake Total 480 / 480 1100 / 1100 1440 / 1440
Balance 480 / 480 1100 / 1100 1440 / 1440
Review of Systems
-
History Source: Patient and Family
All other systems: Not reviewed unless documented
Constitutional: Reports Fever; Denies Chills
Respiratory: Reports No Symptoms and Wheezing (Reports better with Pulmicort); Denies Trouble Breathing
Cardiac: Reports No Symptoms; Denies Chest Pain or Palpitations
Abdomen/GI: Reports No Symptoms; Denies Abdominal Pain, Nausea, Vomiting or Diarrhea
Genitourinary: Reports No Symptoms; Denies Frequency or Urgency
Skin: Reports No Symptoms
Physical Exam
-
General: Well Developed and No Apparent Distress
HEENT: Normocephalic, Atraumatic and Moist Mucous Membranes
Respiratory: Clear to Auscultation; Negative Wheezes or Crackles
Cardiac: Regular Rhythm and S1/S2; Negative Murmur, Rub or Gallop
GI: Soft, Nontender, Nondistended and Normal Bowel Sounds; Negative Organomegaly
Rectal: Deferred by Provider
Musculoskeletal: No Clubbing, No Cyanosis and No Edema
Skin: Warm; Negative Rash
Neuro: Awake, Alert, Oriented, AO x 3 and Nonfocal/Grossly Intact
Psych: Calm and Intact Judgement/Insight
Data Reviewed
-
Diagnostic Radiology: Image personally visualized and interpreted and Report Reviewed by me
Labs: Labs Reviewed by me and Discussed with Physician
Old Records: Reviewed
[2024-03-06] MEDS: NSS 1000 IV ×2 (08:09→17:35)
--- NOTE | 2024-03-06 08:09 | PHA.VAN.FU ---
Vancomycin Assessment / Plan
- Assessment
Renal Function: Stable
WBC's are: Trending Down
In the past 24 hrs, patient has been: Febrile
Concomitant Antimicrobials: cefepime
- Dosing Plan
Adjust Regimen to: Vanc 1000mg Q8H starting at 1400
New Regimen Predicts: AUC (418), Peak (24.7), Trough (11.6)
Dosing Comments: given age and cancer, utilized CrCl 125 ml/min in calculations
Pharmacotherapy. 2019;40(12):0379-6679.
- Monitoring Plan
No level(s) ordered at this time: consider levels in next few days
- Follow Up
Pharmacy will continue to follow.
Vancomycin Follow UP
- -
Patient Age: 24
Patient Sex: Male
Vancomycin Day #: 2
Indication: Bacteremia
Requesting Provider: Dr Eri Fitch / [facility]
Pertinent Antimicrobial Allergies:
NKDA
Height / Weight:
Height 5 ft 8 in
Actual Weight 99.745 kg
IBW in k.4
Adjusted BW in k.9
Pertinent Past Medical History: BMI ~33, large B-cell lymphoma (Port)
- Vital Signs / Lab Results
Temp Pulse Resp BP Pulse Ox
99.8 F 83 18 93/55 97
03/06/24 06:44 03/06/24 03:38 03/06/24 03:38 03/06/24 03:38 03/06/24 03:38
Lab Results - Hematology
03/04/24 03/05/24
22:07 06:19
WBC 16.8 H 14.6 H
Lab Results - Chemistry
03/04/24 03/05/24
22:07 06:19
BUN 15 15
Creatinine 0.9 0.8
Estimated Creat Clear > 125
Albumin 3.9
03/04/24
22:07
Lactic Acid 0.6 L
Microbiology Results
03/05/24 00:43 Blood Culture - Preliminary
Blood/Venous Positive culture in progress
Gram Stain - Preliminary
03/04/24 22:27 Blood Culture - Preliminary
Blood/Venous Positive culture in progress
Gram Stain - Preliminary
03/05/24 10:28 C. difficile GDH Antigen & Toxins - Final
Feces/Stool Negative for toxigenic C.difficile
03/04/24 22:27 Influenza Types A & B (PATI) - Final
Nasal Swab Negative for Influenza A & B, NAAT
Negative results must be combined with clinical observations
and patient history.
Nucleic Acid Amplification test (NAAT)performed on the
[employer] platform.
[2024-03-06] MEDS: ZOVIRAX 400 MG PO ×2 (08:14→20:47)
[2024-03-06] MEDS: ZYRTEC 10 MG PO (08:14)
[2024-03-06] MEDS: ELIQUIS 5 MG PO ×2 (08:14→20:47)
[2024-03-06] MEDS: PROTONIX 40 MG PO (08:14)
[2024-03-06] MEDS: TYLENOL 650 MG PO ×2 (08:16→17:35)
--- NOTE | 2024-03-06 08:30 | PTCARENOTE ---
MD made aware of positive blood cx in progress. Patient's oral temp this AM 101.6F, BP 96/59 taken by tech. NSS @ 125 ml/hr infusing through R subq port. PRN tylenol administered for oral temp. MD made aware of vital signs, no new orders at this
time. Patient c/o occasional wheezing, denies hx of asthma but states season allergies and relief with inhalers in the past. MD made aware, PRN inhaler ordered per MD.
[2024-03-06] MEDS: PULMICORT 0.25 MG INH ×2 (08:54→19:33)
--- NOTE | 2024-03-06 11:27 | W.PN.ID1 ---
Date of Service
Date of Service: March 06, 2024
Today's Communication
Continue antibiotics. Consult IR for port removal.
Assessment / Plan
Fever
Leukocytosis
Staph aureus bacteremia
Large B-cell lymphoma; recent initiation of R-CHOP (02/16/2024)
Recommendations:
Blood cultures reveal the presence of Staph aureus (susceptibility pending)
Continue with empiric vancomycin. Transition cefepime to cefazolin.
Repeat blood cultures now.
Given tenderness of the port, suspect the port is the source of the bacteremia and should be removed.
Discussed with Hospitalist to consult IR for port removal.
Family has given me the number of the patient's Oncologist at [place] (Dr. Janet Multani; [phone]). I have placed a call to them to further discuss the case and keep them in the loop. Currently awaiting callback.
Trend white count and temperature curve.
����������������������������������������������������������
Chief Complaint
-: Fever, Leukocytosis and Bacteremia
Subjective / Review of Systems
Patient seen and examined. Reports feeling improved today as compared to yesterday. Continues to note some tenderness around the port site, and along the tract.
Vital Signs / Physical Exam
Vital Signs
Vital Signs
Temp Pulse Resp BP Pulse Ox
101.6 F H 135 20 96/59 92
03/06/24 07:35 03/06/24 09:00 03/06/24 09:00 03/06/24 07:35 03/06/24 11:13
Physical Exam
Constitutional: No Acute Distress, Comfortable and Non-toxic
Eyes: No Conjunctival Hemorrhage and Sclera Anicteric
Cardiovascular: S1/S2; Negative S3/S4 or Murmur
Pulmonary: Non Labored
Gastrointestinal: Soft and Non Tender
Extremities: Negative Edema, Clubbing or Cyanosis
Skin: Negative Rash or Jaundice
Neurological: Awake and Alert
Lines: Port (right ACW. Tenderness above port and along tract.)
Objective Data
Lab Data
Lab Results
03/05/24 06:19
03/05/24 06:19
Estimated Creat Clear > 125 ml/min 03/05/24 06:19
Lactic Acid 0.6 mmol/L (0.7-2.0) L 03/04/24 22:07
Total Bilirubin 1.2 mg/dl (0.2-1.3) 03/04/24 22:07
AST 46 U/L (17-59) 03/04/24 22:07
ALT 60 U/L (0-50) H 03/04/24 22:07
Alkaline Phosphatase 125 U/L (38-126) 03/04/24 22:07
Most recent labs reviewed.
Micro Results:
03/05/24 00:43 Blood Culture - Preliminary
Blood/Venous Staphylococcus aureus
Gram Stain - Preliminary
03/06/24 10:53 Blood Culture - Pending
Blood/Venous
03/05/24 10:27 Salmonella/Shigella Culture - Preliminary
Feces/Stool Culture in Progress
Campylobacter Culture - Preliminary
Culture in Progress
Shiga Toxin Test - Final
No E. coli Shiga Toxin 1 or 2 detected.
Stool Leukocytes - Pending
03/04/24 22:27 Blood Culture - Preliminary
Blood/Venous Staphylococcus aureus
Gram Stain - Final
03/05/24 10:28 C. difficile GDH Antigen & Toxins - Final
Feces/Stool Negative for toxigenic C.difficile
03/04/24 22:27 Influenza Types A & B (PATI) - Final
Nasal Swab Negative for Influenza A & B, NAAT
Negative results must be combined with clinical observations
and patient history.
Nucleic Acid Amplification test (NAAT)performed on the
[employer] platform.
Imaging:
03/04/2024 CXR (2 view): No parenchymal opacification or vascular congestion. Right chest port is seen with tip in the distal SVC. Cardiomediastinal silhouettes are within the limits of normal.
Care Review
Plan reviewed with: Physician (Hospitalist)
[2024-03-06] MEDS: ANCEF 10 IV ×2 (12:56→20:47)
[2024-03-06] MEDS: VANCOCIN 200 IV ×2 (13:01→22:28)
--- NOTE | 2024-03-06 14:02 | CM ---
Reviewed the chart notes. Per note, plan to remove port. CM continues to be available to patient/family and is monitoring medical plan for needs at discharge.
Plan: Discharge to home when medically stable.
[2024-03-06] MEDS: MELATONIN 5 MG PO (21:35)
[2024-03-07] MEDS: NSS 1000 IV ×3 (01:58→20:05)
[2024-03-07] MEDS: TYLENOL 650 MG PO ×2 (02:50→16:42)
[2024-03-07] MEDS: ANCEF 10 IV ×3 (04:11→20:56)
[2024-03-07] MEDS: VANCOCIN 200 IV (06:34)
--- NOTE | 2024-03-07 07:15 | W.PN.HOSP.TC ---
Today's Communication/Plan
-
Antibiotics narrowed
Trend fever curve
Assessment / Plan
Assessment / Plan
Impression: 24-year-old male with PMH of large B-cell lymphoma on chemo and left lower extremity DVT on Eliquis, who presented to ED on 03/04/2024 with 1 day of fever Tmax 104 at home and leukocytosis.
Assessment/plan
# Sepsis secondary to port infection.
-Blood cultures with MSSA, catheter tip growing Staph aureus.
-Port removed by IR 03/06, may need temporary PICC line per oncology.
-WBC trended down, Tmax 103. in 24H.
-Stool cultures negative
-ABX changed to cefazolin for MSSA
-ID following.
-Follow fever curve.
#Wheezing
-Occasional SOB on exertion.
-Pulmicort changed to Advair PRN.
#Large B-Cell Lymphoma
-Follows with Aron Barajas, Doctor Zaire, initiated R-CHOP on 02/16/2024.
-Continue acyclovir.
-Oncology following.
DVT PPx
-Apixaban
CODE STATUS-full code
Anticipated Discharge: > 48 hours
Subjective/Interval History
-
Date of Service: March 07, 2024
Patient was seen and examined by me with father by bedside. He reports feeling better today and states that he has no pain around the port sites. He also denies chest pain, palpitations, chills, abdominal pain, urinary symptoms.
Objective Data
-
Labs:
Laboratory Results
03/07/24
06:26
WBC Pending
Hgb Pending
Hct Pending
Plt Count Pending
Sodium Pending
Potassium Pending
Chloride Pending
Carbon Dioxide Pending
BUN Pending
Creatinine Pending
Glucose Pending
Calcium Pending
Vital Signs:
Vital Signs
Temp Pulse Resp BP Pulse Ox
100.4 F H 93 18 96/56 97
03/07/24 04:20 03/06/24 23:00 03/06/24 23:00 03/06/24 23:00 03/07/24 01:51
I&O
03/06/24 03/07/24 03/08/24
06:59 06:59 06:59
Intake Total 1100 / 2600 7050 / 7050
Balance 1100 / 2600 7050 / 7050
Review of Systems
-
History Source: Patient and Family
All other systems: Not reviewed unless documented
Constitutional: Reports Fever; Denies Chills
Respiratory: Reports No Symptoms and Wheezing (Reports better with Pulmicort); Denies Trouble Breathing
Cardiac: Reports No Symptoms; Denies Chest Pain or Palpitations
Abdomen/GI: Reports No Symptoms; Denies Abdominal Pain, Nausea, Vomiting or Diarrhea
Genitourinary: Reports No Symptoms; Denies Frequency or Urgency
Skin: Reports No Symptoms
Physical Exam
-
General: Well Developed and No Apparent Distress
HEENT: Normocephalic, Atraumatic and Moist Mucous Membranes
Respiratory: Clear to Auscultation; Negative Wheezes or Crackles
Cardiac: Regular Rhythm and S1/S2; Negative Murmur, Rub or Gallop
GI: Soft, Nontender, Nondistended and Normal Bowel Sounds; Negative Organomegaly
Rectal: Deferred by Provider
Musculoskeletal: No Clubbing, No Cyanosis and No Edema
Skin: Warm; Negative Rash
Neuro: Awake, Alert, Oriented, AO x 3 and Nonfocal/Grossly Intact
Psych: Calm and Intact Judgement/Insight
Data Reviewed
-
Diagnostic Radiology: Image personally visualized and interpreted, Report Reviewed by me and Discussed with Physician
Labs: Labs Reviewed by me and Discussed with Physician
Old Records: Reviewed
[2024-03-07 07:21] LABS: % Eosinophils 0.1 % (0-6); % Immature Granulocytes 0.4 % (0-0.5); % Lymphocytes 7.7 % (20.5-51.1); % Monocytes 13.9 % (1.7-9.3); % Neutrophils 76.9 % (42.2-75.2); Absolute Basophils 0.1 10^3/uL (0-0.2); Absolute Lymphocytes 0.5 10^3/uL (1.2-3.4); Absolute Neutrophils 5.3 10^3/uL (1.4-6.5); Hematocrit 39.2 % (39.0-52.0); Hemoglobin 13.3 g/dL (13.0-18.0); Mean Corp Hgb Conc. 33.9 g/dL (33.0-37.0); Mean Corpuscular Hgb 26.8 pg (27.0-31.0); Mean Corpuscular Volume 78.9 fL (80.0-94.0); Mean Platelet Volume 10.5 fL (7.4-10.4); Nucleated Red Blood Cells % 0 % (-); Platelet Count 178 10^3/uL (130-400); Red Blood Cell Count 4.97 10^6/uL (4.70-6.10); White Blood Cell Count 6.9 10^3/uL (4.8-10.8)
[2024-03-07 07:27] LABS: Blood Urea Nitrogen 12 mg/dl (9-20); Calcium 8.3 mg/dl (8.4-10.2); Carbon Dioxide 24 mmol/L (22-30); Chloride 102 mmol/L (98-107); Estimated Creatinine Clearance > 125 ml/min; Glucose 107 mg/dl (70-99); Potassium 3.8 mmol/L (3.5-5.1); Sodium 140 mmol/L (135-145); eGFR > 60.00
[2024-03-07 07:35] VITALS: BP 115/66
[2024-03-07] MEDS: PULMICORT 0.25 MG INH (07:42)
[2024-03-07] MEDS: ELIQUIS 5 MG PO ×2 (08:48→20:56)
[2024-03-07] MEDS: PROTONIX 40 MG PO (08:48)
[2024-03-07] MEDS: ZOVIRAX 400 MG PO ×2 (08:48→20:56)
[2024-03-07] MEDS: ZYRTEC 10 MG PO (08:48)
--- NOTE | 2024-03-07 09:28 | W.PN.ONC ---
Today's Communication / Plan
-
Continue abx per ID
Follow cultures and fever curve, which has improved
CBC without cytopenias
Would hold off on replacing port until he completes full abx course, may need temporary PICC line for next chemo infusion (originally scheduled for 03/08, will be postponed)
Timing of next chemo cycle per primary oncologist at [facility] (Dr. Multani)
Impression
Impression
Diffuse large B-cell lymphoma, status post cycle 1 of R-CHOP on 02/16/2024
Port infection, now s/p port removal 03/06/24
Bacteremia, staph aureus
Plan
Plan
Continue abx per ID
Follow cultures and fever curve, which has improved
CBC without cytopenias
Would hold off on replacing port until he completes full abx course, may need temporary PICC line for next chemo infusion (originally scheduled for 03/08, will be postponed)
Timing of next chemo cycle per primary oncologist at [facility] (Dr. Multani)
Subjective/Objective
Subjective/Objective
feeling great, no specific complaints, eager to get home
Vital Signs:
Vital Signs
Temp Pulse Resp BP Pulse Ox
98.5 F 87 16 115/66 94
03/07/24 07:35 03/07/24 07:46 03/07/24 07:46 03/07/24 07:35 03/07/24 07:46
Lab Results:
Laboratory Data
WBC 6.9 10^3/uL (4.8-10.8) 03/07/24 06:26
Hgb 13.3 g/dL (13.0-18.0) 03/07/24 06:26
Plt Count 178 10^3/uL (130-400) D 03/07/24 06:26
eGFR > 60.00 03/07/24 06:26
[2024-03-07 16:07] VITALS: BP 105/60
--- NOTE | 2024-03-07 17:09 | W.PN.ID1 ---
Date of Service
Date of Service: March 07, 2024
Today's Communication
c/w cefazolin
If 03/06 blood cultures become positive then would plan TTE and repeat blood cultures x2, would follow these to 72 hours prior to placing a line
Assessment / Plan
Fever
Leukocytosis
Staph aureus bacteremia
Port infection - s/p removal 03/06
Large B-cell lymphoma; recent initiation of R-CHOP (02/16/2024)
Recommendations:
Blood cultures reveal the presence of MSSA
Continue with cefazolin; stopped vancomycin
Blood culture 03/04 one set MSSA
Blood culture 03/05 one set MSSA
Repeat blood cultures 03/06 NGTD in two sets
Port tip culture 03/06: MSSA - s/p removal
If 03/06 blood cultures become positive then would plan TTE and repeat blood cultures x2, would follow these to 72 hours prior to placing a line
Patient's Oncologist at [facility] (Dr. Janet Multani; [phone])
Trend white count and temperature curve.
����������������������������������������������������������
Chief Complaint
-: Fever, Leukocytosis and Bacteremia
Subjective / Review of Systems
fevers ongoing
bp stable
sleeping and not disturbed
updated mom
Vital Signs / Physical Exam
Vital Signs
Vital Signs
Temp Pulse Resp BP Pulse Ox
100.4 F H 103 16 105/60 97
03/07/24 16:07 03/07/24 16:07 03/07/24 16:07 03/07/24 16:07 03/07/24 16:07
Physical Exam
Constitutional: No Acute Distress and Chronically Ill
Cardiovascular: Regular Rate
Pulmonary: Symmetric and Non Labored
Gastrointestinal: Non Distended
Neurological: Negative Awake
Objective Data
Lab Data
Lab Results
03/07/24 06:26
03/07/24 06:26
Estimated Creat Clear > 125 ml/min 03/07/24 06:26
Lactic Acid 0.6 mmol/L (0.7-2.0) L 03/04/24 22:07
Total Bilirubin 1.2 mg/dl (0.2-1.3) 03/04/24 22:07
AST 46 U/L (17-59) 03/04/24 22:07
ALT 60 U/L (0-50) H 03/04/24 22:07
Alkaline Phosphatase 125 U/L (38-126) 03/04/24 22:07
Most recent labs reviewed.
Micro Results:
03/05/24 10:27 Salmonella/Shigella Culture - Final
Feces/Stool No Salmonella, Shigella, Aeromonas or Plesiomonas species
isolated.
Campylobacter Culture - Final
No Campylobacter species isolated.
Shiga Toxin Test - Final
No E. coli Shiga Toxin 1 or 2 detected.
Stool Leukocytes - Final
03/06/24 11:42 Blood Culture - Preliminary
Blood/Venous No Growth in 24 hours- Final report to follow
03/06/24 10:53 Blood Culture - Preliminary
Blood/Venous No Growth in 24 hours- Final report to follow
03/06/24 14:25 Catheter Tip Culture - Preliminary
Catheter Tip Staphylococcus aureus
03/05/24 00:43 Blood Culture - Final
Blood/Venous S aureus-Methicillin Sensitive
Gram Stain - Final
03/04/24 22:27 Blood Culture - Final
Blood/Venous S aureus-Methicillin Sensitive
Gram Stain - Final
03/05/24 10:28 C. difficile GDH Antigen & Toxins - Final
Feces/Stool Negative for toxigenic C.difficile
03/04/24 22:27 Influenza Types A & B (PATI) - Final
Nasal Swab Negative for Influenza A & B, NAAT
Negative results must be combined with clinical observations
and patient history.
Nucleic Acid Amplification test (NAAT)performed on the
[employer] platform.
Imaging:
03/04/2024 CXR (2 view): No parenchymal opacification or vascular congestion. Right chest port is seen with tip in the distal SVC. Cardiomediastinal silhouettes are within the limits of normal.
Care Review
Plan reviewed with: Physician (Dr Mendez - melinda)
[2024-03-07] MEDS: MELATONIN 5 MG PO (20:57)
[2024-03-07 23:25] VITALS: BP 104/58
[2024-03-08] MEDS: TYLENOL 650 MG PO (03:09)
[2024-03-08] MEDS: NSS 1000 IV ×3 (04:14→22:13)
[2024-03-08] MEDS: ANCEF 10 IV ×3 (04:15→20:44)
[2024-03-08] MEDS: NSS IV (04:41)
[2024-03-08 06:58] LABS: Uric Acid 3.1 mg/dl (3.5-8.5)
--- NOTE | 2024-03-08 07:28 | W.PN.HOSP.TC ---
Today's Communication/Plan
-
Continue antibiotics
Follow blood cultures
Left groin heating pad/warm compresses
Assessment / Plan
Assessment / Plan
Impression: 24-year-old male with PMH of large B-cell lymphoma on chemo and left lower extremity DVT on Eliquis, who presented to ED on 03/04/2024 with 1 day of fever Tmax 104 at home and leukocytosis.
Assessment/plan
# Sepsis secondary to port infection.
-Blood cultures with MSSA, catheter tip growing Staph aureus.
-Port removed by IR 03/06, may need temporary PICC line per oncology.
-WBC trended down, Tmax 103.2 in 24H.
-ABX changed to cefazolin for MSSA day #2
-Repeat blood cultures x 2 and follow for 72 hours with potential TTE if 03/06 blood cultures becomes positive per ID.
-Eventually replace line thereafter, temporary PICC line for next chemo per oncology.
-ID and oncology on board.
-Follow fever curve.
Left groin biopsy site erythema/swelling
-Likely hematoma from Bx.
-Erythema and new patient, may be infected.
-Ultrasound of right groin per ID.
-Apply heating pad and warm compress.
-Remove if feeling uncomfortable.
#Wheezing
-Occasional SOB on exertion.
-Pulmicort changed to Advair PRN.
#Large B-Cell Lymphoma
-Follows with Aron Barajas, Doctor Zaire, initiated R-CHOP on 02/16/2024.
-Continue acyclovir.
-Oncology following.
DVT PPx
-Apixaban
CODE STATUS-full code
Anticipated Discharge: 24 - 48 hours
Subjective/Interval History
-
Date of Service: March 08, 2024
Patient was seen and examined in the room with his dad by bedside. Reports fever 100.4 overnight and mild pain around the biopsy site on his left groin area. His fever is well-controlled on Tylenol. He denies chest pain, palpitations, chills,
abdominal pain, nausea/vomiting, urinary symptoms. The left groin biopsy area is erythematous, fluctuant and warm to touch and patient reports that the area has been like this for a while with no acute changes.
Objective Data
-
Labs:
Laboratory Results
03/08/24
07:22
WBC Pending
Hgb Pending
Hct Pending
Plt Count Pending
Sodium Pending
Potassium Pending
Chloride Pending
Carbon Dioxide Pending
BUN Pending
Creatinine Pending
Glucose Pending
Calcium Pending
Vital Signs:
Vital Signs
Temp Pulse Resp BP Pulse Ox
99.7 F 86 14 104/58 96
03/07/24 23:25 03/07/24 23:25 03/07/24 23:25 03/07/24 23:25 03/08/24 02:27
I&O
03/07/24 03/08/24 03/09/24
06:59 06:59 06:59
Intake Total 7050 / 7050 3070 / 3070
Balance 7050 / 7050 3070 / 3070
Review of Systems
-
History Source: Patient and Family
All other systems: Not reviewed unless documented
Constitutional: Reports Fever; Denies Chills
Respiratory: Reports No Symptoms and Wheezing (Reports better with Pulmicort); Denies Trouble Breathing
Cardiac: Reports No Symptoms; Denies Chest Pain or Palpitations
Abdomen/GI: Reports No Symptoms; Denies Abdominal Pain, Nausea, Vomiting or Diarrhea
Genitourinary: Reports No Symptoms; Denies Frequency or Urgency
Skin: Reports Other (Right groin hematoma and erythema)
Physical Exam
-
General: Well Developed and No Apparent Distress
HEENT: Normocephalic, Atraumatic and Moist Mucous Membranes
Respiratory: Clear to Auscultation; Negative Wheezes or Crackles
Cardiac: Regular Rhythm and S1/S2; Negative Murmur, Rub or Gallop
GI: Soft, Nontender, Nondistended and Normal Bowel Sounds; Negative Organomegaly
Rectal: Deferred by Provider
Musculoskeletal: No Clubbing, No Cyanosis and No Edema
Skin: Warm and Other (Left groin hematoma); Negative Rash
Neuro: Awake, Alert, Oriented, AO x 3 and Nonfocal/Grossly Intact
Psych: Calm and Intact Judgement/Insight
Data Reviewed
-
Diagnostic Radiology: Image personally visualized and interpreted, Report Reviewed by me and Discussed with Physician
Labs: Labs Reviewed by me and Discussed with Physician
Old Records: Reviewed
[2024-03-08 07:30] VITALS: BP 101/67
[2024-03-08 08:45] LABS: Hematocrit 37.1 % (39.0-52.0); Hemoglobin 12.7 g/dL (13.0-18.0); Mean Corp Hgb Conc. 34.2 g/dL (33.0-37.0); Mean Corpuscular Hgb 27.9 pg (27.0-31.0); Mean Corpuscular Volume 81.4 fL (80.0-94.0); Mean Platelet Volume 10.7 fL (7.4-10.4); Platelet Count 194 10^3/uL (130-400); Red Blood Cell Count 4.56 10^6/uL (4.70-6.10); White Blood Cell Count 5.4 10^3/uL (4.8-10.8)
[2024-03-08 09:02] LABS: Blood Urea Nitrogen 8 mg/dl (9-20); Calcium 8.4 mg/dl (8.4-10.2); Carbon Dioxide 24 mmol/L (22-30); Chloride 104 mmol/L (98-107); Estimated Creatinine Clearance > 125 ml/min; Glucose 104 mg/dl (70-99); Sodium 141 mmol/L (135-145); eGFR > 60.00
[2024-03-08] MEDS: ZOVIRAX 400 MG PO ×2 (09:05→20:45)
[2024-03-08] MEDS: ZYRTEC PO ×2 (09:05→09:12)
[2024-03-08] MEDS: PROTONIX 40 MG PO (09:05)
[2024-03-08] MEDS: ELIQUIS 5 MG PO ×2 (09:05→20:44)
--- NOTE | 2024-03-08 11:56 | W.PN.ID1 ---
Date of Service
Date of Service: March 08, 2024
Today's Communication
Continue with cefazolin
IR aspiration of the L groin lymphocele
If 03/06 blood cultures become positive then would plan TTE and repeat blood cultures x2, would follow these to 72 hours prior to placing a line
Assessment / Plan
Fever
Leukocytosis
Staph aureus bacteremia
Port infection - s/p removal 03/06
Large B-cell lymphoma; recent initiation of R-CHOP (02/16/2024)
Recommendations:
Continue with cefazolin
Blood culture 03/04 one set MSSA
Blood culture 03/05 one set MSSA
Repeat blood cultures 03/06 NGTD in two sets
Port tip culture 03/06: MSSA - s/p removal
If 03/06 blood cultures become positive then would plan TTE and repeat blood cultures x2, would follow these to 72 hours prior to placing a line
Will need at least 2 weeks and possibly longer of IV therapy
Patient's Oncologist at [facility] (Dr. Janet Multani; [phone]). I spoke with his surgeon at [facility] Dr Kingsley and reviewed findings that lymphocele is red, swollen, warm and ongoing fevers in the setting of sustained S aureus bacteremia and
Im concerned it may be secondarily infected; he agreed with getting IR aspiration for culture.
Trend white count and temperature curve.
����������������������������������������������������������
Chief Complaint
-: Fever, Leukocytosis and Bacteremia
Subjective / Review of Systems
fever curve improving
bp stable
L groin lymphocele red (new), warm, skin anesthetic
Vital Signs / Physical Exam
Vital Signs
Vital Signs
Temp Pulse Resp BP Pulse Ox
98.0 F 82 16 101/67 94
03/08/24 07:30 03/08/24 07:30 03/08/24 07:30 03/08/24 07:30 03/08/24 11:01
Physical Exam
Constitutional: No Acute Distress
Cardiovascular: Regular Rate and S1/S2; Negative Murmur or Rub
Pulmonary: Clear and Symmetric; Negative Wheezes or Rales
Gastrointestinal: Soft, Non Tender, Non Distended and Normal Bowel Sounds
Skin: Warm and Dry; Negative Rash or Jaundice
Wound: Other (L groin lymphocele site now red, still quite swollen and skin is anesthetic.)
Lines: Other (previous port site minimally tender, dressing take down deferred)
Objective Data
Lab Data
Lab Results
03/08/24 06:04
03/08/24 07:22
Estimated Creat Clear Cancelled 03/08/24 07:22
Lactic Acid 0.6 mmol/L (0.7-2.0) L 03/04/24 22:07
Total Bilirubin 1.2 mg/dl (0.2-1.3) 03/04/24 22:07
AST 46 U/L (17-59) 03/04/24 22:07
ALT 60 U/L (0-50) H 03/04/24 22:07
Alkaline Phosphatase 125 U/L (38-126) 03/04/24 22:07
Most recent labs reviewed.
Micro Results:
03/06/24 10:53 Blood Culture - Preliminary
Blood/Venous No Growth in 48 hours- Final report to follow
03/06/24 14:25 Catheter Tip Culture - Final
Catheter Tip S aureus-Methicillin Sensitive
03/05/24 10:27 Salmonella/Shigella Culture - Final
Feces/Stool No Salmonella, Shigella, Aeromonas or Plesiomonas species
isolated.
Campylobacter Culture - Final
No Campylobacter species isolated.
Shiga Toxin Test - Final
No E. coli Shiga Toxin 1 or 2 detected.
Stool Leukocytes - Final
03/06/24 11:42 Blood Culture - Preliminary
Blood/Venous No Growth in 24 hours- Final report to follow
03/05/24 00:43 Blood Culture - Final
Blood/Venous S aureus-Methicillin Sensitive
Gram Stain - Final
03/04/24 22:27 Blood Culture - Final
Blood/Venous S aureus-Methicillin Sensitive
Gram Stain - Final
03/05/24 10:28 C. difficile GDH Antigen & Toxins - Final
Feces/Stool Negative for toxigenic C.difficile
03/04/24 22:27 Influenza Types A & B (PATI) - Final
Nasal Swab Negative for Influenza A & B, NAAT
Negative results must be combined with clinical observations
and patient history.
Nucleic Acid Amplification test (NAAT)performed on the
[employer] platform.
Imaging:
03/04/2024 CXR (2 view): No parenchymal opacification or vascular congestion. Right chest port is seen with tip in the distal SVC. Cardiomediastinal silhouettes are within the limits of normal.
--- NOTE | 2024-03-08 12:29 | CM ---
Reviewed the chart notes. Received script for IV abx. Clinicals and IV abx script faxed to [facility] for cost analysis. PICC to be placed. CM continues to be available to patient/family and is monitoring medical plan for needs at discharge.
Plan: Discharge to home with IV abx when medically stable.
[2024-03-08 14:28] VITALS: BP 121/74; BP_SYST 83
[2024-03-08 15:30] VITALS: BP 126/83
[2024-03-08 15:35] VITALS: BP 124/83
--- NOTE | 2024-03-08 15:51 | W.PN.UPDATE ---
Update Note
Progress Note Update
- L groin fluid collection aspirated with US guidance. 70 mL of clear, serous fluid aspirated, sent for culture.
[2024-03-08] MEDS: MELATONIN PO (22:13)
[2024-03-08] MEDS: ZYRTEC 10 MG PO (22:14)
[2024-03-08 23:38] VITALS: BP 120/68
[2024-03-09] MEDS: ANCEF 10 IV ×3 (04:11→22:02)
[2024-03-09] MEDS: TYLENOL 650 MG PO ×2 (04:20→20:47)
--- NOTE | 2024-03-09 06:04 | PTCARENOTE ---
Pt had gone to the bathroom and he spit in the toilet, noting some blood in his sputum. Every time the patient coughs and spits there is scant amount of blood. Examined pt mouth/throat, no signs of bleeding visible. Throat looks red/irritated. Pt
complains of some discomfort in his throat that does not require medication. Will pass information to dayshift nurse. Pt resting comfortably in bed, call casey within reach.
[2024-03-09] MEDS: NSS 1000 IV (06:30)
[2024-03-09 06:37] LABS: Iron 34 ug/dl (49-181)
[2024-03-09 06:46] LABS: Percent Saturation 15 % (20-50); Total Iron Binding Capacity 221 ug/dl (261-462)
--- NOTE | 2024-03-09 07:17 | W.PN.HOSP.TC ---
Today's Communication/Plan
-
Warm compress on biopsy site
Continue antibiotics
Follow cultures
Assessment / Plan
Assessment / Plan
Impression: 24-year-old male with PMH of large B-cell lymphoma on chemo and left lower extremity DVT on Eliquis, who presented to ED on 03/04/2024 with 1 day of fever Tmax 104 at home and leukocytosis.
Assessment/plan
# Sepsis secondary to port infection.
-Blood cultures with MSSA, catheter tip growing Staph aureus.
-Port removed by IR 03/06, may need temporary PICC line per oncology.
-WBC trended down, No fever in 24 hours.
-ABX changed to cefazolin for MSSA day #4
-Biopsy site drained by IR 03/08/2024, fluid sent for Gram stain.
-Repeat blood cultures NTD, if definitely negative will get PICC line for next chemo.
-ID and oncology on board.
-Follow fever curve.
Left groin biopsy site erythema/swelling
-US�guided aspiration 03/07/2024 with 70 mL clear serous fluid aspirated, culture NGTD.
-Apply heating pad and warm compress.
#Wheezing
-Resolved with ProAir
#Large B-Cell Lymphoma
-Follows with Aron Barajas, Doctor Zaire, initiated R-CHOP on 02/16/2024.
-Continue acyclovir.
-Oncology following.
DVT PPx
-Apixaban
CODE STATUS-full code
Anticipated Discharge: 24 - 48 hours
Subjective/Interval History
-
Date of Service: March 09, 2024
Patient was seen with his dad at bedside. He stated that last night was his best night. He has a productive cough with blood-tinged sputum but no fever overnight. He reports that his groin area feels very comfortable without pain. He does not
have any chest pain, chills, abdominal pain, nausea/vomiting or loose stools. Patient is currently on heparin and apixaban and reports no bleeding.
Objective Data
-
Vital Signs:
Vital Signs
Temp Pulse Resp BP Pulse Ox
99.8 F 89 19 120/68 98
03/09/24 04:23 03/08/24 23:38 03/08/24 23:38 03/08/24 23:38 03/09/24 01:45
I&O
03/08/24 03/09/24 03/10/24
06:59 06:59 06:59
Intake Total 3070 / 3070 2700 / 2700
Balance 3070 / 3070 2700 / 2700
Review of Systems
-
History Source: Patient and Family
All other systems: Not reviewed unless documented
Constitutional: Denies Fever or Chills
Respiratory: Reports No Symptoms and Cough (Intermittent cough with mild blood-tinged sputum); Denies Trouble Breathing or Wheezing
Cardiac: Reports No Symptoms; Denies Chest Pain or Palpitations
Abdomen/GI: Reports No Symptoms; Denies Abdominal Pain, Nausea, Vomiting or Diarrhea
Genitourinary: Reports No Symptoms; Denies Frequency or Urgency
Skin: Reports Other (Right groin hematoma and erythema)
Physical Exam
-
General: Well Developed and No Apparent Distress
HEENT: Normocephalic, Atraumatic and Moist Mucous Membranes
Respiratory: Clear to Auscultation and Non Labored Respirations; Negative Wheezes or Crackles
Cardiac: Regular Rhythm and S1/S2; Negative Murmur, Rub or Gallop
GI: Soft, Nontender, Nondistended and Normal Bowel Sounds; Negative Organomegaly
Rectal: Deferred by Provider
Musculoskeletal: No Clubbing, No Cyanosis and No Edema
Skin: Warm and Other (Left groin hematoma); Negative Rash
Neuro: Awake, Alert, Oriented, AO x 3 and Nonfocal/Grossly Intact
Psych: Calm and Intact Judgement/Insight
Data Reviewed
-
Diagnostic Radiology: Image personally visualized and interpreted, Report Reviewed by me and Discussed with Physician
Ultrasound: Report Reviewed by me and Discussed with Physician
Labs: Labs Reviewed by me and Discussed with Physician
Old Records: Reviewed
[2024-03-09 07:40] VITALS: BP 105/62
[2024-03-09 09:11] LABS: % Basophils 0.8 % (0-2); % Eosinophils 0.5 % (0-6); % Immature Granulocytes 0.6 % (0-0.5); % Lymphocytes 10.4 % (20.5-51.1); % Neutrophils 73.7 % (42.2-75.2); Absolute Basophils 0.1 10^3/uL (0-0.2); Absolute Lymphocytes 0.7 10^3/uL (1.2-3.4); Absolute Monocytes 0.9 10^3/uL (0.1-0.6); Absolute Neutrophils 4.8 10^3/uL (1.4-6.5); Mean Corp Hgb Conc. 34.2 g/dL (33.0-37.0); Mean Platelet Volume 10.1 fL (7.4-10.4); Nucleated Red Blood Cells % 0 % (-); Platelet Count 262 10^3/uL (130-400); Red Blood Cell Count 4.81 10^6/uL (4.70-6.10); Red Cell Dist. Width 13.8 % (11.5-14.5); White Blood Cell Count 6.4 10^3/uL (4.8-10.8)
[2024-03-09] MEDS: ELIQUIS 5 MG PO ×2 (09:19→20:48)
[2024-03-09] MEDS: ZOVIRAX 400 MG PO ×2 (09:19→20:48)
[2024-03-09] MEDS: PROTONIX 40 MG PO (09:19)
[2024-03-09 09:33] LABS: Erythrocyte Sed Rate 24 mm/hour (0-20)
--- NOTE | 2024-03-09 09:49 | CM ---
Reviewed the chart notes and spoke with the patient and his father at the bedside. Updated patient and father that CM spoke with Madeleine from [facility] [employer]. Per Madeleine, patient is covered 100% for medication, supplies and RN. CM continues to be
available to patient/family and is monitoring medical plan for needs at discharge.
Plan: Discharge to home with [facility] providing IV abx, supplies and RN for PICC management when medically stable.
[2024-03-09 15:40] VITALS: BP 115/75
--- NOTE | 2024-03-09 17:17 | W.PN.ID1 ---
Date of Service
Date of Service: March 09, 2024
Today's Communication
Will need at least 2 weeks and possibly longer of IV therapy pending seroma culture
PICC line
Assessment / Plan
Fever
Leukocytosis
Staph aureus bacteremia
Port infection - s/p removal 03/06
Large B-cell lymphoma; recent initiation of R-CHOP (02/16/2024)
Recommendations:
Continue with cefazolin
Blood culture 03/04 one set MSSA
Blood culture 03/05 one set MSSA
Repeat blood cultures 03/06 NGTD in two sets
Port tip culture 03/06: MSSA - s/p removal
Seroma culture 03/08 - no growth to date, gram stain negative
Will need at least 2 weeks and possibly longer of IV therapy pending seroma culture
PICC line
Patient's Oncologist at [facility] (Dr. Janet Multani; [phone])
Trend white count and temperature curve.
����������������������������������������������������������
Chief Complaint
-: Fever, Leukocytosis and Bacteremia
Subjective / Review of Systems
afebrile
bp stable
seroma culture gram stain negative
Vital Signs / Physical Exam
Vital Signs
Vital Signs
Temp Pulse Resp BP Pulse Ox
98.2 F 92 16 115/75 97
03/09/24 15:40 03/09/24 15:40 03/09/24 15:40 03/09/24 15:40 03/09/24 15:40
Physical Exam
Constitutional: No Acute Distress
Cardiovascular: Regular Rate and S1/S2; Negative Murmur or Rub
Pulmonary: Clear and Symmetric; Negative Wheezes or Rales
Gastrointestinal: Soft, Non Tender, Non Distended and Normal Bowel Sounds
Skin: Warm and Dry; Negative Rash or Jaundice
Objective Data
Lab Data
Lab Results
03/09/24 06:00
03/08/24 07:22
ESR 24 mm/hour (0-20) H 03/09/24 06:00
Estimated Creat Clear Cancelled 03/08/24 07:22
Lactic Acid 0.6 mmol/L (0.7-2.0) L 03/04/24 22:07
Total Bilirubin 1.2 mg/dl (0.2-1.3) 03/04/24 22:07
AST 46 U/L (17-59) 03/04/24 22:07
ALT 60 U/L (0-50) H 03/04/24 22:07
Alkaline Phosphatase 125 U/L (38-126) 03/04/24 22:07
C-Reactive Protein 136.90 mg/L (0.0-10.00) H 03/09/24 05:51
Most recent labs reviewed.
Micro Results:
03/08/24 15:28 Wound Culture - Preliminary
Groin - Left No growth
Gram Stain - Preliminary
03/06/24 11:42 Blood Culture - Preliminary
Blood/Venous No Growth in 72 hours- Final report to follow
03/06/24 10:53 Blood Culture - Preliminary
Blood/Venous No Growth in 72 hours- Final report to follow
03/06/24 14:25 Catheter Tip Culture - Final
Catheter Tip S aureus-Methicillin Sensitive
03/05/24 10:27 Salmonella/Shigella Culture - Final
Feces/Stool No Salmonella, Shigella, Aeromonas or Plesiomonas species
isolated.
Campylobacter Culture - Final
No Campylobacter species isolated.
Shiga Toxin Test - Final
No E. coli Shiga Toxin 1 or 2 detected.
Stool Leukocytes - Final
03/05/24 00:43 Blood Culture - Final
Blood/Venous S aureus-Methicillin Sensitive
Gram Stain - Final
03/04/24 22:27 Blood Culture - Final
Blood/Venous S aureus-Methicillin Sensitive
Gram Stain - Final
03/05/24 10:28 C. difficile GDH Antigen & Toxins - Final
Feces/Stool Negative for toxigenic C.difficile
03/04/24 22:27 Influenza Types A & B (PATI) - Final
Nasal Swab Negative for Influenza A & B, NAAT
Negative results must be combined with clinical observations
and patient history.
Nucleic Acid Amplification test (NAAT)performed on the
[employer] platform.
Imaging:
03/04/2024 CXR (2 view): No parenchymal opacification or vascular congestion. Right chest port is seen with tip in the distal SVC. Cardiomediastinal silhouettes are within the limits of normal.
--- NOTE | 2024-03-09 17:51 | PTCARENOTE ---
IV team made aware by this RN of order for PICC line per ID.
--- NOTE | 2024-03-09 21:52 | VATNOTE ---
right picc pulled back 2 cm per radiologist report for SVC placement. Biopatch applied so pt. does not need dsg changed in am prior to discharge.
[2024-03-09] MEDS: MELATONIN 5 MG PO (22:06)
[2024-03-09] MEDS: ZYRTEC 5 MG PO (22:06)
[2024-03-09 23:16] VITALS: BP 106/64
[2024-03-10] MEDS: ANCEF 10 IV ×2 (04:35→12:06)
--- NOTE | 2024-03-10 06:10 | W.PN.HOSP.TC ---
Today's Communication/Plan
-
Continue antibiotics
Warm compresses on biopsy site
Follow-up oncology outpatient (Dr. Multani)
Assessment / Plan
Assessment / Plan
Impression: 24-year-old male with PMH of large B-cell lymphoma on chemo and left lower extremity DVT on Eliquis, who presented to ED on 03/04/2024 with 1 day of fever Tmax 104 at home and leukocytosis.
Assessment/plan
# Sepsis secondary to port infection.
-PICC line placed today.
-S/p hematoma aspiration 03/08/2022 for, seroma culture NGTD, Gram stain negative.
-Blood cultures with MSSA, catheter tip culture with MSSA-port removed 03/06.
-No fever in 2 days, WBC WNL.
-Continue cefazolin for MSSA until 03/19/2024 per ID�total 14 days
-Warm compresses on biopsy sites.
-ID and oncology appreciated
#Wheezing
-Resolved with ProAir
#Large B-Cell Lymphoma
-Follows with Aron Barajas, Doctor Zaire, initiated R-CHOP on 02/16/2024.
-Continue acyclovir.
-Follow-up with oncologist at [facility] (Dr. Multani)
DVT PPx
-Apixaban
CODE STATUS-full code
Anticipated Discharge: Today
Subjective/Interval History
-
Date of Service: March 10, 2024
Patient seen and examined with father in the room. Reports feeling better today, excited to go home today. Reports no fever overnight, no chills, denies chest pain, shortness of breath, abdominal pain, nausea/vomiting. He states that the biopsy
sites is not painful, he does not have any headaches today or vision changes.
Objective Data
-
Vital Signs:
Vital Signs
Temp Pulse Resp BP Pulse Ox
98.3 F 79 19 106/64 95
03/09/24 23:16 03/09/24 23:16 03/09/24 23:16 03/09/24 23:16 03/10/24 03:20
I&O
03/08/24 03/09/24 03/10/24
06:59 06:59 06:59
Intake Total 3070 / 3070 2700 / 2700 1889
Balance 3070 / 3070 2700 / 2700 1889
Review of Systems
-
History Source: Patient and Family
All other systems: Not reviewed unless documented
Constitutional: Denies Fever, Fatigue or Chills
Respiratory: Reports No Symptoms and Cough (Intermittent cough with mild blood-tinged sputum); Denies Trouble Breathing or Wheezing
Cardiac: Reports No Symptoms; Denies Chest Pain or Palpitations
Abdomen/GI: Reports No Symptoms; Denies Abdominal Pain, Nausea, Vomiting or Diarrhea
Genitourinary: Reports No Symptoms; Denies Frequency or Urgency
Skin: Reports Other (Right groin hematoma and erythema); Denies Itching
Physical Exam
-
General: Well Developed and No Apparent Distress
HEENT: Normocephalic, Atraumatic and Moist Mucous Membranes
Respiratory: Clear to Auscultation and Non Labored Respirations; Negative Wheezes or Crackles
Cardiac: Regular Rhythm and S1/S2; Negative Murmur, Rub or Gallop
GI: Soft, Nontender, Nondistended and Normal Bowel Sounds; Negative Organomegaly
Rectal: Deferred by Provider
Musculoskeletal: No Clubbing, No Cyanosis and No Edema
Skin: Warm and Other (Left groin hematoma); Negative Rash
Neuro: Awake, Alert, Oriented, AO x 3 and Nonfocal/Grossly Intact
Psych: Calm and Intact Judgement/Insight
Data Reviewed
-
Diagnostic Radiology: Image personally visualized and interpreted, Report Reviewed by me and Discussed with Physician
Ultrasound: Report Reviewed by me and Discussed with Physician
Labs: Labs Reviewed by me and Discussed with Physician
Old Records: Reviewed
[2024-03-10 07:40] VITALS: BP 109/71
[2024-03-10] MEDS: ZOVIRAX 400 MG PO (09:37)
[2024-03-10] MEDS: ELIQUIS 5 MG PO (09:37)
[2024-03-10] MEDS: PROTONIX 40 MG PO (09:37)
--- NOTE | 2024-03-10 10:11 | W.DCSUMMARY ---
Documented by User: Arash Paulino MD, Resident 03/10/24 14:13
Discharge Summary
Discharge Data
Date of Admission: 03/06/24
Date of Discharge: 03/10/24
-
Pending Results: No
Hospital Course
Discharging Physician : Kobe Mendez DO ; Arash Paulino MD
Disposition : Home
Primary care physician : Justin Moon MD
Principal Discharge diagnosis : Sepsis, right groin hematoma, large B-cell lymphoma
Hospital Course : 25-year-old male with PMH of large B-cell lymphoma on chemo, and left lower extremity DVT (on Eliquis), who presented to ED on 03/04/2024 with 1 day history of fever, N/V, and leukocytosis. While in the ED, patient had a fever
of 102.2, BP 106/76, pulse 144, respiratory 28, saturating at 94% on room air. Patient was treated with IV fluid, IV antibiotics was also started and patient was admitted for further evaluation and management.
While in the hospital, patient was seen in conjunction with oncology, infectious disease and interventional radiology. Patient was discovered to have a left groin swelling with erythema which was suspected to be infected and was subsequently
drained, Gram stain and and cultured. His blood culture and catheter tip cultures grew MSSA, and patient's antibiotics were switched to cefazolin. His port was also removed due to the infection with the plan to do TTE to assess for endocarditis if
blood cultures become positive in 72 hours. Patient antibiotics was continued and blood cultures has been sterile to date. A PICC line was placed on 03/09/2024 for his subsequent IV antibiotics and chemo administrations.
Patient has been instructed to keep the PICC line dry, follow-up with his oncologist at [facility] and continue his IV antibiotics for at least 2 weeks pending seroma culture results. A work note has been given to patient to abstain from work for
now to prevent infection of the port.
Condition on discharge: Awake, alert and oriented x3, answer question properly, able to make own decision and take care of activities of daily living, speech clear and comprehensive, continent of the bowel and bladder, ambulate without patient services assistant,
goes home where lives with the family independently. He is now medically stable for discharge, all questions answered and all concerns addressed.
Important imaging findings :
CXR 03/09/2024:
Right PICC line with tip projecting over the superior aspect of the right atrium.
Minimal left pleural effusion. Patchy parenchymal opacity within the left lower lung, with main differential considerations of atelectasis and/or pneumonia.
Left lower extremity ultrasound 03/08/2024:
Complex fluid collection with internal septations is seen within the soft tissues of the left groin measuring 7.4 x 5.9 x 6.9 cm without blood flow within. Most likely differential diagnostic possibilities include a complex/inflammatory seroma,
infected seroma, hematoma, infected hematoma or less likely abscess.
Procedure findings :
Abscess drainage 03/08/2024:
Successful ultrasound-guided aspiration of left groin fluid collection. 70 mL of clear serous fluid aspirated.
Discharge Plan
-
Patient Disposition: Home (Routine Discharge)
Discharge Diagnosis/Procedures: Sepsis, port infection, large B-cell lymphoma, hematoma aspiration, port removal
Condition: Fair
Diet: No restrictions
Activity: No restrictions
Driving Restrictions: As prior to admission
Bathing Restrictions: None
Referrals:
antwan, maggie [Other]
Justin Moon MD [Family Provider] - in less than 1 week
Prescriptions:
New
cefazolin 10 gram Recon Soln
2 g IV Q8H 10 Days Qty: 10 0RF
Continued
cetirizine [Zyrtec] 10 mg Tablet
10 mg PO DAILYPRN PRN (Reason: running nose)
ondansetron HCl 8 mg Tablet
8 mg PO Q8HPRN PRN (Reason: nausea)
acyclovir 400 mg Tablet
400 mg PO BID
acetaminophen 500 mg Tablet
1,000 mg PO Q6HPRN PRN (Reason: mild pain)
lidocaine-prilocaine 2.5-2.5 % Cream
1 applic TOPICAL DAILYPRN PRN (Reason: port access)
Eliquis 5 mg Tablet
5 mg PO BID
Discharge Orders:
Discharge Patient (As Directed); Ordered 03/10/24
Ordered By: Kobe Mendez
Discharge Date and Time
Print Language: KOSOVAN

Documented by User: Kobe Mendez DO 03/10/24 14:17
Discharge Summary
Discharge Data
Date of Admission: 03/06/24
Date of Discharge: 03/10/24
Discharge Plan
-
Patient Disposition: Home (Routine Discharge)
Discharge Diagnosis/Procedures: Sepsis, port infection, large B-cell lymphoma, hematoma aspiration, port removal
Condition: Fair
Diet: No restrictions
Activity: No restrictions
Driving Restrictions: As prior to admission
Bathing Restrictions: None
Referrals:
antwan, maggie [Other]
Justin Moon MD [Family Provider] - in less than 1 week
Prescriptions:
New
cefazolin 10 gram Recon Soln
2 g IV Q8H 10 Days Qty: 10 0RF
Continued
cetirizine [Zyrtec] 10 mg Tablet
10 mg PO DAILYPRN PRN (Reason: running nose)
ondansetron HCl 8 mg Tablet
8 mg PO Q8HPRN PRN (Reason: nausea)
acyclovir 400 mg Tablet
400 mg PO BID
acetaminophen 500 mg Tablet
1,000 mg PO Q6HPRN PRN (Reason: mild pain)
lidocaine-prilocaine 2.5-2.5 % Cream
1 applic TOPICAL DAILYPRN PRN (Reason: port access)
Eliquis 5 mg Tablet
5 mg PO BID
Discharge Orders:
Discharge Patient (As Directed); Ordered 03/10/24
Ordered By: Kobe Mendez
Discharge Date and Time
Print Language: KOSOVAN
--- NOTE | 2024-03-10 10:12 | CM ---
Addendum entered by Diana Giron RN 03/10/24 13:47:
Per Madeleine, [facility] will do a telehealth visit with the patient tonight to instruction on how to infuse the IV abx via PICC. Patient and parents in agreement with this plan.
Plan: Discharge to home with [facility] IV abx and RN for PICC line management.
Addendum entered by Diana Giron RN 03/10/24 12:49:
CM spoke with Madeleine [facility] Liaison to discuss the patient's discharge for today. Per Madeleine, she will need to check with nursing regarding fitting the patient into the schedule. Awaiting call back. Plan has been for discharge on Wednesday, today.
Original Note:
Reviewed the chart notes. PICC information and chest x-ray results faxed to [facility]. Anticipate discharge today to home with [facility] for IV abx and RN for PICC line management. Family will transport. continues to be available to
patient/family and is monitoring medical plan for needs at discharge.
Plan: Discharge to home with [facility] IV abx and RN for PICC line management.
[2024-03-10 10:47] LABS: Hematocrit 40.5 % (39.0-52.0); Hemoglobin 13.8 g/dL (13.0-18.0); Mean Corp Hgb Conc. 34.1 g/dL (33.0-37.0); Mean Corpuscular Hgb 27.1 pg (27.0-31.0); Mean Corpuscular Volume 79.6 fL (80.0-94.0); Mean Platelet Volume 9.2 fL (7.4-10.4); Platelet Count 342 10^3/uL (130-400); Red Blood Cell Count 5.09 10^6/uL (4.70-6.10); Red Cell Dist. Width 13.8 % (11.5-14.5); White Blood Cell Count 9.2 10^3/uL (4.8-10.8)
[2024-03-10 11:16] LABS: Blood Urea Nitrogen 8 mg/dl (9-20); Calcium 9.4 mg/dl (8.4-10.2); Carbon Dioxide 26 mmol/L (22-30); Chloride 102 mmol/L (98-107); Estimated Creatinine Clearance > 125 ml/min; Glucose 106 mg/dl (70-99); Potassium 4.7 mmol/L (3.5-5.1); Sodium 142 mmol/L (135-145); eGFR > 60.00
[2024-03-10 14:34] VITALS: BP 131/73
== END 2024-03-10 15:48 | disposition home or self-care (01) | DRG 987 ==
LOC: 2 NORTH 13:17
PROVIDERS: Clinical Nurse Specialist Family Health; Radiology Diagnostic Radiology; Radiology Vascular & Interventional Radiology; Student in an Organized Health Care Education/Training Program; ADMITTING PHYSICIAN Internal Medicine; ATTENDING PHYSICIAN Internal Medicine; CONSULT PHYSICIAN Internal Medicine Infectious Disease; EMERGENCY PHYSICIAN Student in an Organized Health Care Education/Training Program; FAMILY PHYSICIAN Pediatrics; OTHER PHYSICIAN Internal Medicine Hematology & Oncology
PROC: 0JPT3XZ Removal of Tunneled Vascular Access Device from Trunk Subcutaneous Tissue and Fascia, Percutaneous Approach (ICD-10-PCS; 2024-03-06)
PROC: 0Y963ZX Drainage of Left Inguinal Region, Percutaneous Approach, Diagnostic (ICD-10-PCS; 2024-03-08)
PROC: 02HV33Z Insertion of Infusion Device into Superior Vena Cava, Percutaneous Approach (ICD-10-PCS; 2024-03-09)
DX: T80.211A Bloodstream infection due to central venous catheter, initial encounter (principal); A41.01 Sepsis due to Methicillin susceptible Staphylococcus aureus; C85.10 Unspecified B-cell lymphoma, unspecified site; C83.30 Diffuse large B-cell lymphoma, unspecified site; L02.214 Cutaneous abscess of groin; Z11.52 Encounter for screening for COVID-19; Y83.1 Surgical operation with implant of artificial internal device as the cause of abnormal reaction of the patient, or of later complication, without mention of misadventure at the time of the procedure
CPT/HCPCS: 10160; 36590; 71045; 71046; 76882; 76942; 77001; 80048; 80053; 81003; 81015; 82728; 83540; 83550; 83605; 84550; 85025; 85027; 85652; 86140; 87040; 87045; 87046; 87070; 87084; 87147; 87186; 87205; 87324; 87427; 87449; 87502; 87811; 89055; 94640; 96361; 96365; 96375; 99285